=== PATIENT | female | born 1945 | race Caucasian/White ===

== ENCOUNTER 2021-04-25 16:29 | Emergency (ER) | payer OTHER ==
[~2021-04-25] VITALS: Ht 152.4 cm; Wt 68.9 kg
[2021-04-25 16:49] VITALS: BP 148/68
--- NOTE | 2021-04-25 17:14 | NUR ---
PT AMBULATED TO BED 09.
[2021-04-25] MEDS ORDERED: GABA100C PO (17:52)
[2021-04-25] MEDS ORDERED: BACTO TP (17:52)
[2021-04-25] MEDS ORDERED: traMADol 50 MG TAB PO ONE (17:55)
--- NOTE | 2021-04-25 17:55 | NUR ---
PT C/O NOSE PAIN X2 DAYS
[2021-04-25] MEDS ORDERED: traMADol 50 MG TAB ONE (17:57)
[2021-04-25 18:13] VITALS: BP 131/70
== END 2021-04-25 18:12 | disposition home or self-care (01) ==
LOC: MED 16:29
DX: L98.9 Disorder of the skin and subcutaneous tissue, unspecified (principal); I10 Essential (primary) hypertension; E11.9 Type 2 diabetes mellitus without complications; Z90.710 Acquired absence of both cervix and uterus; Z79.899 Other long term (current) drug therapy; Z79.2 Long term (current) use of antibiotics
CPT/HCPCS: 99283